=== PATIENT | male | born 1975 | race Two or more races ===

== ENCOUNTER 2023-08-28 05:32 | Day surgery (SDC) | payer OTHER ==
[2023-08-28] MEDS ORDERED: ANESTHESIA TRAY IN PYXIS 1 EA TRAY MC ONE (05:48)
[2023-08-28] MEDS ORDERED: BUPIVACAINE 0.5 % PF 150 MG/30 ML VIAL ONE (05:48)
[2023-08-28] MEDS ORDERED: FENTANYL PF 100MCG/2ML AMPUL ONE (06:35)
[2023-08-28] MEDS ORDERED: MIDAZOLAM HCL 2 MG/2ML VIAL ONE (06:35)
[2023-08-28] MEDS ORDERED: FAMOTIDINE/PF INJ 20 MG/2 ML VIAL IV ONE (06:36)
[2023-08-28] MEDS ORDERED: ACETAMINOPHEN 325 MG TABLET ONE (09:00)
[2023-08-28] MEDS ORDERED: POTASSIUM CHLORIDE 10 MEQ/50 ML PREMIXED IVPB FOR PERIPHERAL LINE IV ONE (12:00)
[2023-08-28] MEDS ORDERED: ACETAMINOPHEN 325 MG TABLET PO ONE (13:00)
== END 2023-08-28 10:59 | disposition still patient (30) ==
LOC: DS 05:32 → UNDOADMIN 05:33 → MED 05:33 → DS 10:59
PROVIDERS: ATTEND Specialist
DX: T84.84XA Pain due to internal orthopedic prosthetic devices, implants and grafts, initial encounter (principal); Y79.3 Surgical instruments, materials and orthopedic devices (including sutures) associated with adverse incidents; S63.501A Unspecified sprain of right wrist, initial encounter; X58.XXXA Exposure to other specified factors, initial encounter; E66.9 Obesity, unspecified
CPT/HCPCS: 20610; 20680; 25115; J0690; J1885; J2250; J2405; J2704; J3010; J3490; J7030